=== PATIENT | female | born 1990 | race Caucasian/White ===

== ENCOUNTER 2023-01-16 11:00 | Outpatient (CLI) | payer BC, SELFPAY ==
[2023-01-16 11:14] VITALS: BP 110/67; PULSE 82
[2023-01-16 11:29] VITALS: BP 100/65; PULSE 62
[2023-01-16 11:58] VITALS: BMI 23.2
[2023-01-16 11:59] VITALS: BP 102/70; PULSE 58
[2023-01-16 12:41] LABS: Bilirubin Urine Neg (Negative); Blood Urine 3+ (Negative); Glucose Urine UA Norm (Normal); Ketones Urine Negative (Negative); Leukocyte Esterase Urine Trace (Negative); Nitrate Urine Positive (Negative); Protein Urine Neg (Negative); Specific Gravity, Urine 1.005 (1.005-1.030); Sulfosalicylic Acid Urine Negative (Negative); Urine Appearance Cloudy (CLEAR); Urine Color Dark Yellow (Yellow); Urobilinogen Urine Norm (Negative); pH Urine 8 (5-7)
[2023-01-16 12:42] LABS: RBC Urine TOO NUMEROUS TO CNT /hpf (0-2); WBC Urine 15-25 /hpf (0-5)
[2023-01-16 12:43] LABS: Add Urine Culture? Yes; Bacteria Urine 3+ /hpf; Squamous Epithelial Cell Urine 0-4 /hpf (0-5)
== END 2023-01-16 13:05 | disposition home or self-care (01) ==
LOC: OPOB 11:03 → OBGYN 11:03
PROVIDERS: Family Provider Family Medicine; Visit Provider Family Medicine
DX: O26.899 Other specified pregnancy related conditions, unspecified trimester (principal); Z3A.00 Weeks of gestation of pregnancy not specified
CPT/HCPCS: 81001; 87077; 87086; 87186; 99211

== ENCOUNTER 2023-05-02 06:59 | Inpatient (IN) | payer BC, MEDICAID, SELFPAY ==
[2023-05-02 06:46] VITALS: BP 137/82; PULSE 84
[2023-05-02 07:03] VITALS: BMI 25.8
[2023-05-02 07:09] LABS: Basophils % 0.3 %; Eosinophils # 0.1 10^3/uL (0.0-0.8); Eosinophils % 0.8 %; Hematocrit 33.4 % (37.0-47.0); Hemoglobin 10.8 g/dL (11.5-15.3); Lymphocytes # 3.3 10^3/uL (0.8-4.8); Lymphocytes % 30.9 %; Mean Corpuscular HGB Conc 32.3 g/dL (30.0-36.0); Mean Corpuscular Hemoglobin 26.5 pg (28.0-34.0); Mean Corpuscular Volume 82.1 fl (81-99); Mean Platelet Volume 10.5 fL (7.4-10.4); Monocytes # 0.6 10^3/uL (0.2-0.9); Monocytes % 5.8 %; Neutrophils # 6.64 10^3/uL (1.8-7.7); Neutrophils % 61.6 %; Nucleated Red Blood Cells % 0 %; Platelet Count 242 10^3/cmm (130-400); Red Blood Count 4.07 10^6/uL (4.1-5.3); Red Cell Distribution Width 13.5 % (12.1-15.1); White Blood Count 10.8 10^3/uL (4.0-10.0)
--- NOTE | 2023-05-02 07:51 | PM.OPHPUD ---
Labor & Delivery H&P Update Date of Procedure: May 02, 2023 Date H&P Performed: 04/28/23 Changes to previous documentation: The cervix was 7 cm dilated on admission Admission Diagnosis: 32-year-old 3 para 2-0-0-2 at 38 weeks estimated gestational age Planned procedure: Spontaneous vaginal delivery Other information: The patient presented to the hospital in active labor. She began having contractions about 3 hours prior to arriving at the hospital. There was no rupture of membranes. She had no other complications. Upon arrival to hospital she was found to be 7 cm dilated. Her was otherwise unremarkable. Her blood type is AB+. Her antibody screen is negative. She is GBS negative. She is rubella immune. The remainder of her infectious disease profile is within normal limits. Related Problem List Diagnoses (1) 38 weeks gestation of : A&P Assessment and plan (1) 38 weeks gestation of : I anticipate a rapid labor, and a spontaneous vaginal delivery. Status: Acute
--- NOTE | 2023-05-02 08:05 | PM.DELIVERY ---
Delivery Note: Date of delivery: May 02, 2023 Pre-delivery diagnoses: 32-year-old 3 para 2-0-0-2 at 38 weeks estimated gestational age Post-delivery diagnoses: Status post spontaneous vaginal delivery Procedure: Spontaneous vaginal delivery Delivering Physician: Jose Daniel Staples Estimated blood loss (mL): 10 Pre-Delivery Course: The patient presented to the hospital having contractions. She was found to be 7 meters dilated. She quickly progressed to complete and less than half an hour. Delivery: DELIVERY: The patient progressed to complete without difficulty. She delivered a female with a weight of 7 pounds 12 ounces with Apgars of 9, 9. The baby was delivered from the YARON position and placed on the mother's abdomen. The cord was then clamped and cut 1 minute after delivery. There was no nuchal cord. There was no meconium. The placenta and 3 vessel cord were delivered intact shortly thereafter. The perineum and vaginal vault were carefully examined. No lacerations were noted. Both the mother and the baby were in stable condition. Post-Delivery Status: Good A&P Assessment and plan (1) Spontaneous vaginal delivery: I anticipate routine care. Coding Level of Care Code Acute Code for Chg Fwd Diagnoses Spontaneous vaginal delivery O80
[2023-05-02] MEDS: ibuprofen 800 mg tablet PO ×2 (09:07→17:26)
[2023-05-02] MEDS: prenatal vitamin Capsule 1 CAP PO (09:07)
[2023-05-02] MEDS: docusate sodium 100 mg Capsule PO ×2 (09:08→17:26)
[2023-05-02 10:22] VITALS: BP 131/80; PULSE 90
[2023-05-02 17:26] VITALS: BP 130/86; PULSE 81; RESP 16; TEMP 37
[2023-05-02 22:00] VITALS: BP 109/69; PULSE 63; RESP 14; TEMP 36.6; TEMP 36.7; O2SAT 97
[2023-05-03 00:50] LABS: Hematocrit 29.9 % (37.0-47.0); Hemoglobin 9.8 g/dL (11.5-15.3); Mean Corpuscular HGB Conc 32.8 g/dL (30.0-36.0); Mean Corpuscular Hemoglobin 27.4 pg (28.0-34.0); Mean Corpuscular Volume 83.5 fl (81-99); Mean Platelet Volume 10.3 fL (7.4-10.4); Platelet Count 217 10^3/cmm (130-400); Red Blood Count 3.58 10^6/uL (4.1-5.3); Red Cell Distribution Width 13.5 % (12.1-15.1); White Blood Count 14.6 10^3/uL (4.0-10.0)
[2023-05-03 04:34] VITALS: BP 120/78; PULSE 74; TEMP 36.8; O2SAT 96
--- NOTE | 2023-05-03 07:12 | PM.OBGYDC ---
Discharge Providers [employer] Date of Admission: 05/02/23 07:54 Date of Discharge: 05/03/23 Attending Provider at Admission: Jose Daniel Staples MD Attending Provider at Discharge: Jose Daniel Staples MD Diagnoses at Discharge Discharge Diagnosis (1) Spontaneous vaginal delivery: Status: Acute Reason for Visit Reason for Visit: contractions since 444 Hospital Course Hospital Course The patient presented to the hospital in active labor. She quickly progressed to complete. She had unremarkable vaginal delivery. Her course has also been unremarkable. Her bleeding has been within normal limits. Her pain is been well controlled. There have been no concerns. Information Peripartum Data: Delivery Method: Vaginal Physical Exam Narrative: The patient is alert. She appears comfortable. Her heart has a regular rate and rhythm with no murmurs appreciated. Lungs are clear to auscultation bilaterally. Her fundus is firm and below the umbilicus. Discharge Data Studies Completed and Pending Pending at discharge Category Date Time Status Retype for Patiets ABO/Rh Routine Lab 05/02/23 07:43 Received Laboratory Results WBC 14.6 10^3/uL (4.0-10.0) H 05/03/23 00:42 RBC 3.58 10^6/uL (4.1-5.3) L 05/03/23 00:42 Hgb 9.8 g/dL (11.5-15.3) L 05/03/23 00:42 Hct 29.9 % (37.0-47.0) L 05/03/23 00:42 MCV 83.5 fl (81-99) 05/03/23 00:42 MCH 27.4 pg (28.0-34.0) L 05/03/23 00:42 MCHC 32.8 g/dL (30.0-36.0) 05/03/23 00:42 RDW 13.5 % (12.1-15.1) 05/03/23 00:42 Plt Count 217 10^3/cmm (130-400) 05/03/23 00:42 MPV 10.3 fL (7.4-10.4) 05/03/23 00:42 Neut % (Auto) 61.6 % 05/02/23 06:59 Lymph % (Auto) 30.9 % 05/02/23 06:59 [place] % (Auto) 5.8 % 05/02/23 06:59 Eos % (Auto) 0.8 % 05/02/23 06:59 Baso % (Auto) 0.3 % 05/02/23 06:59 Neut # (Auto) 6.64 10^3/uL (1.8-7.7) 05/02/23 06:59 Lymph # (Auto) 3.3 10^3/uL (0.8-4.8) 05/02/23 06:59 [place] # (Auto) 0.6 10^3/uL (0.2-0.9) 05/02/23 06:59 Eos # (Auto) 0.1 10^3/uL (0.0-0.8) 05/02/23 06:59 Baso # (Auto) 0.0 10^3/uL (0.0-0.1) 05/02/23 06:59 Nucleated RBC % (auto) 0 % 05/02/23 06:59 Nucleated RBCs # 0.0 /100WBC 05/02/23 06:59 Blood Type AB Positive 05/02/23 06:59 Rho(D) Type Positive 05/02/23 06:59 Antibody Screen Negative 05/02/23 06:59 Vitals Last Vital Signs Temp 98.2 F 05/03/23 04:34 Pulse 74 05/03/23 04:34 Resp 14 05/02/23 22:00 BP 120/78 05/03/23 04:34 Pulse Ox 96 05/03/23 04:34 O2 Del Method Room Air 05/03/23 04:34 Discharge Plan Discharge Patient Disposition: Home Condition: Stable Prescriptions: New ibuprofen 800 mg Tablet 800 mg PO TID Qty: 45 0RF -U 106.5-1 mg Capsule 1 cap PO DAILY Qty: 90 1RF Discharge Orders: Discharge Order (Routine); Ordered 05/03/23 Ordered By: Jose Daniel Staples Referrals: Jose Daniel Staples MD [Physician] - 6 Weeks Discharge Diet: Usual diet Discharge Activity: Limit activity as instructed Patient Instructions: Opioid Safety Discharge Attestations [employer] Time Spent in Discharge Care*: less than 30 min Coding Level of Care Code Acute Code for Chg Fwd Diagnoses Spontaneous vaginal delivery O80
[2023-05-03] MEDS: prenatal vitamin Capsule 1 CAP PO (09:52)
[2023-05-03] MEDS: docusate sodium 100 mg Capsule PO (09:52)
[2023-05-03] MEDS: ibuprofen 800 mg tablet PO (09:52)
[2023-05-03 09:55] VITALS: BP 106/68; PULSE 79; TEMP 36.6; TEMP 36.7; O2SAT 97
[2023-05-03 15:23] VITALS: BP 114/80; PULSE 87; TEMP 36.3; O2SAT 96
== END 2023-05-03 15:15 | disposition home or self-care (01) | DRG 807 ==
LOC: OPOB 05-03 10:05 → OBGYN 05-03 10:06
PROVIDERS: Admitting Provider Family Medicine; Family Provider Family Medicine; Visit Provider Family Medicine
DX: O80 Encounter for full-term uncomplicated delivery (principal); Z37.0 Single live birth; Z3A.38 38 weeks gestation of pregnancy
CPT/HCPCS: 36415; 59025; 59409; 83986; 85025; 85027; 86850; 86900; 99211